=== PATIENT | female | born 1970 ===

== ENCOUNTER → 2017-05-07 | Outpatient (CLI) | payer OTHER ==
[~2017-05-07] VITALS: Ht 152.4 cm; Wt 69.4 kg
[~2017-05-07] MED LIST: AMBIEN5 MG; CITALOPRAM HBR10 MG; CITALOPRAM HBR10 MG PO; DECADRON P4 MG/ML-1M IH; TORADOL60 MG IM; XANAX XR0.5 MG
== END | disposition home or self-care (01) ==
LOC: PPHC 09:55
DX: Z01.89 Encounter for other specified special examinations (principal); M54.2 Cervicalgia; I10 Essential (primary) hypertension